=== PATIENT | male | born 1985 | race Hispanic/Latino ===

== ENCOUNTER 2021-12-15 20:40 | Emergency (ER) | payer SELFPAY ==
[~2021-12-15] VITALS: Ht 180.3 cm; Wt 83.9 kg
[2021-12-15] MEDS ORDERED: ONDANSETRON HCL 4 MG ORAL DISINTEGRATING TAB PO STA (21:15)
[2021-12-15] MEDS ORDERED: ONDANSETRON ODT4 MG PO (23:16)
[2021-12-15] MEDS ORDERED: AUGMENTIN 500-1 EACH PO (23:19)
[2021-12-15 23:20] VITALS: BP 140/89
== END 2021-12-15 23:23 | disposition home or self-care (01) ==
LOC: ER 20:43
DX: R11.2 Nausea with vomiting, unspecified (principal); B34.9 Viral infection, unspecified; Z20.822 Contact with and (suspected) exposure to COVID-19; F17.210 Nicotine dependence, cigarettes, uncomplicated
CPT/HCPCS: 74176; 99283; Q0162; U0002

== ENCOUNTER 2022-02-21 22:22 | Emergency (ER) | payer SELFPAY ==
[~2022-02-21] VITALS: Ht 180.3 cm; Wt 83.9 kg
[~2022-02-21 22:22] MED LIST: AUGMENTIN 500-1 EACH PO; ONDANSETRON ODT4 MG PO
[2022-02-21] MEDS ORDERED: ONDANSETRON HCL 4 MG ORAL DISINTEGRATING TAB PO ONE (22:45)
[2022-02-21] MEDS ORDERED: DICYCLOMINE HCL 20 MG/2 ML VIAL IM ONE ×2 (22:45→22:57)
[2022-02-21] MEDS ORDERED: ONDANSETRON ODT4 MG PO (22:48)
[2022-02-21] MEDS ORDERED: DICYCLOMINE HCL20 MG PO (22:48)
[2022-02-21] MEDS ORDERED: ONDANSETRON HCL 4 MG ORAL DISINTEGRATING TAB ONE (22:57)
== END 2022-02-21 22:50 | disposition home or self-care (01) ==
LOC: ER 22:37
DX: R11.2 Nausea with vomiting, unspecified (principal); A08.4 Viral intestinal infection, unspecified; R10.9 Unspecified abdominal pain; R19.7 Diarrhea, unspecified; F17.210 Nicotine dependence, cigarettes, uncomplicated
CPT/HCPCS: 99282; J0500; Q0162